=== PATIENT | male | born 1995 ===

== ENCOUNTER 2017-09-22 09:13 | Emergency (ER) | payer OTHER ==
[2017-09-22 09:14] VITALS: BMI 20.2
[2017-09-22 09:24] VITALS: TEMP 97.9
--- NOTE | 2017-09-22 09:41 | ED PDOC ---
Arrival/HPI - General Chief Complaint: ENT Problem Time Seen by Provider: 09/22/17 09:15 Historian: Patient - History of Present Illness Narrative History of Present Illness (Text): 09/22/17 09:38 22yo male with no PMhx who present with complaint of lodged q-tip to his left ear and bleeding ear drum. States it started bleeding this morning, while cleaning his ear with q-tip and the q-tip became stuck in his left ear. He denies any other complaint. Past Medical History - Provider Review Nursing Documentation Reviewed: Yes - Infectious Disease Hx of Infectious Diseases: None - Past Medical History Past Medical History: No Previous - Psychiatric Hx Substance Use: No - Past Surgical History Past Surgical History: No Previous - Suicidal Assessment Feels Threatened In Home Enviroment: No Family/Social History - Physician Review Nursing Documentation Reviewed: Yes Family/Social History: Unknown Family HX Smoking Status: Never Smoked Hx Alcohol Use: No Hx Substance Use: No Hx Substance Use Treatment: No Allergies/Home Meds Allergies/Adverse Reactions: Allergies No Known Allergies Allergy (Verified 09/22/17 09:24) Review of Systems - Physician Review All systems were reviewed & negative as marked: Yes - Review of Systems Constitutional: Normal Eyes: Normal ENT: Other (Stuck FB to left ear and bleeding ear drum) Respiratory: Normal Cardiovascular: Normal Gastrointestinal: Normal Genitourinary Male: Normal Musculoskeletal: Normal Skin: Normal Neurological: Normal Endocrine: Normal Hemo/Lymphatic: Normal Psychiatric: Normal Physical Exam Vital Signs Reviewed: Yes Vital Signs Temp Pulse Resp BP Pulse Ox 09/22/17 09:22 97.9 F 62 18 115/78 98 Temperature: Afebrile Blood Pressure: Normal Pulse: Regular Respiratory Rate: Normal Appearance: Positive for: Well-Appearing, Non-Toxic, Comfortable Pain Distress: None Mental Status: Positive for: Alert and Oriented X 3 - Systems Exam Head: Present: Atraumatic, Normocephalic Pupils: Present: PERRL Extroacular Muscles: Present: EOMI Conjunctiva: Present: Normal Ears: Present: Other (Q-tip noted obstructing left canal). No: NORMAL TM ( Blood noted on left TM wall) Mouth: Present: Moist Mucous Membranes Neck: Present: Normal Range of Motion Respiratory/Chest: Present: Clear to Auscultation, Good Air Exchange. No: Respiratory Distress, Accessory Muscle Use Cardiovascular: Present: Regular Rate and Rhythm, Normal S1, S2. No: Murmurs Abdomen: No: Tenderness, Distention, Peritoneal Signs Back: Present: Normal Inspection Upper Extremity: Present: Normal Inspection. No: Cyanosis, Edema Lower Extremity: Present: Normal Inspection. No: Edema Neurological: Present: GCS=15, CN II-XII Intact, Speech Normal Skin: Present: Warm, Dry, Normal Color. No: Rashes Psychiatric: Present: Alert, Oriented x 3, Normal Insight, Normal Concentration Medical Decision Making ED Course and Treatment: 09/22/17 09:41 Q-tip removed using small alligator clamp. No active blood noted. Pt tolerated. Will DC home with Cipro otic rx. Referred to his PMD/ENT. Disposition/Present on Arrival - Present on Arrival Any Indicators Present on Arrival: No History of DVT/PE: No History of Uncontrolled Diabetes: No Urinary Catheter: No History of Decub. Ulcer: No History Surgical Site Infection Following: None - Disposition Have Diagnosis and Disposition been Completed?: Yes Diagnosis: Foreign body in ear, Ear injury Disposition: HOME/ ROUTINE Disposition Time: 09:45 Patient Plan: Discharge Condition: STABLE Discharge Instructions (ExitCare): Removing Objects Stuck in the Ear Additional Instructions: Follow up with your Doctor/ENT Stop using q-tip Return to ED for any new or worsening symptoms Prescriptions: Ciprofloxacin/Hydrocortisone [Cipro Hc Otic Suspension] 10 ml OT BID #4 drops.susp Referrals: Chirag De Anda DO [Staff Provider] - Follow up with primary
[2017-09-22 10:02] VITALS: BP 120/76; PULSE 66; RESP 16; O2SAT 99
== END 2017-09-22 10:04 | disposition home or self-care (01) ==
LOC: ED 09:13
DX: T16.2XXA Foreign body in left ear, initial encounter (principal); S09.91XA Unspecified injury of ear, initial encounter; W22.8XXA Striking against or struck by other objects, initial encounter